=== PATIENT | female | born 1955 | race Caucasian/White ===

== ENCOUNTER 2019-11-09 09:52 | Day surgery (SDC) | payer OTHER ==
[~2019-11-09] VITALS: Ht 162.6 cm; Wt 66.0 kg
[2019-11-09] MEDS ORDERED: PLEASE ENTER HEIGHT AND WEIGHT MC SCH (10:30)
[2019-11-09] MEDS ORDERED: CHLORHEXIDINE 15 ML UDC MM ONE (10:30)
[2019-11-09 10:32] VITALS: BP 147/76
[2019-11-09] MEDS ORDERED: NONE PER PATIENT (10:42)
[2019-11-09] MEDS ORDERED: LIDOCAINE-MPF 1%, 2ML INFIL ONE (11:00)
[2019-11-09] MEDS ORDERED: LACTATED RINGERS 1,000 ML IV SCH (11:00)
[2019-11-09] MEDS ORDERED: PROPOFOL 100 ML ONE (12:57)
[2019-11-09] MEDS ORDERED: DEXAMETHASONE 4 MG/ML, 1ML ONE (12:58)
[2019-11-09] MEDS ORDERED: AMPICILLIN/SULBACTAM 3 GM ONE (12:58)
[2019-11-09] MEDS ORDERED: SUCCINYLCHOLINE 20 MG/ML, 10ML ONE (12:58)
[2019-11-09] MEDS ORDERED: ONDANSETRON 2MG/ML, 2ML ONE (12:58)
[2019-11-09] MEDS ORDERED: AMPICILLIN/SULBACTAM 3 GM in SODIUM CHLORIDE 0.9% 100 ML IV ONE (13:00)
[2019-11-09] MEDS ORDERED: FENTANYL PF 100 MCG/2ML ONE (13:10)
[2019-11-09] MEDS ORDERED: hydrALAzine 20 MG/ML, 1ML IV PRN (14:00)
[2019-11-09] MEDS ORDERED: OXYcodone 5 MG/5 ML ORAL.SOL UDC PO PRN (14:00)
[2019-11-09] MEDS ORDERED: HALOPERIDOL 5 MG/ML IV PRN (14:00)
[2019-11-09] MEDS ORDERED: HYDROmorphone 2 MG/ML, 1ML IVPush PRN (14:00)
[2019-11-09] MEDS ORDERED: LABETALOL 5MG/ML, 20ML IV PRN (14:00)
[2019-11-09] MEDS ORDERED: ALBUTEROL SULFATE 2.5 MG/3 ML NPPB PRN (14:00)
[2019-11-09] MEDS ORDERED: FENTANYL PF 100 MCG/2ML IV PRN (14:00)
[2019-11-09] MEDS ORDERED: PROMETHAZINE 25 MG/ML, 1ML IV PRN (14:00)
== END 2019-11-09 15:30 | disposition home or self-care (01) ==
LOC: OUT 09:52
PROVIDERS: ATTEND Internal Medicine Geriatric Medicine
DX: K86.2 Cyst of pancreas (principal); Z11.59 Encounter for screening for other viral diseases; K21.9 Gastro-esophageal reflux disease without esophagitis; Z79.899 Other long term (current) drug therapy; Z90.710 Acquired absence of both cervix and uterus; Z90.722 Acquired absence of ovaries, bilateral; Z90.79 Acquired absence of other genital organ(s); Z98.890 Other specified postprocedural states; Z80.9 Family history of malignant neoplasm, unspecified
CPT/HCPCS: 43242; 87635; 93005; J0295; J0330; J1100; J2405; J2704; J3010; J7120